=== PATIENT | male | born 1965 | race Caucasian/White ===

== ENCOUNTER → 2017-06-29 | Outpatient (CLI) | payer BC ==
--- NOTE | 2017-06-29 14:16 | KCIC ---
Examination: MRI left shoulder without contrast HISTORY: History of left shoulder pain COMPARISON: None available TECHNIQUE: Multiplanar, multisequence MR imaging of the left shoulder performed without contrast FINDINGS: The long head of the biceps tendon is within the bicipital groove. The attachment of the long head biceps tendon to superior labral anchor grossly appears intact. The attachment of the subscapularis tendon grossly appears intact. There is mild to moderate tendinosis of the supraspinatus and infraspinatus tendon. There is mild increased T2 signal identified in the undersurface of the conjoined portion of the supraspinatus and infraspinatus tendon best visualized on series 7 image #4 measuring 7 mm likely partial undersurface tear. No evidence of labral tear identified. The muscle bulk grossly appears unremarkable. Moderate degenerative changes identified in the acromioclavicular joint. Acromion is type II. There is mild augmentation of fat in the rotator interval. IMPRESSION: 1. 7 mm increased signal identified in the undersurface of the conjoined portion of the supraspinatus and infraspinatus tendon likely partial undersurface tear. 2. Moderate tendinosis supraspinatus and infraspinatus tendons. 3. Moderate degenerative changes acromioclavicular joint. 4. Mild obliteration of fat in the rotator interval. Correlate for adhesive capsulitis. Electronically signed by: Jung Manzano MD (06/29/2017 2:13 PM) [id number]
== END | disposition home or self-care (01) ==
LOC: KCIC MRI 12:53
PROVIDERS: ATTEND Orthopaedic Surgery
DX: M75.02 Adhesive capsulitis of left shoulder (principal)
CPT/HCPCS: 73221